=== PATIENT | female | born 1940 | race Caucasian/White ===

== ENCOUNTER 2018-03-14 09:05 | Outpatient (CLI) | payer OTHER, MEDICAID | END 2018-03-14 19:34 | disposition home or self-care (01) | LOC: SMA 09:05 | DX: Z12.31 Encounter for screening mammogram for malignant neoplasm of breast (principal) | CPT/HCPCS: 77067 ==

== ENCOUNTER 2018-04-02 09:13 | Outpatient (CLI) | payer OTHER, MEDICAID | END 2018-04-02 21:10 | disposition home or self-care (01) | LOC: SMA 09:13 | PROVIDERS: ATTEND Family Medicine | DX: R92.8 Other abnormal and inconclusive findings on diagnostic imaging of breast (principal) | CPT/HCPCS: 77065 ==